=== PATIENT | male | born 1945 | race Caucasian/White ===

== ENCOUNTER 2024-02-16 12:30 | Outpatient (CLI) | payer MEDICARE | END 2024-02-16 12:31 | disposition home or self-care (01) | LOC: PET 12:30 | PROVIDERS: ATTEND Urology | DX: C61 Malignant neoplasm of prostate (principal); C77.5 Secondary and unspecified malignant neoplasm of intrapelvic lymph nodes | CPT/HCPCS: 78815; A9552; A9595 ==

== ENCOUNTER 2024-04-27 15:40 | Outpatient (CLI) | payer MEDICARE | END 2024-04-27 15:41 | disposition home or self-care (01) | LOC: BICULT 15:40 | PROVIDERS: ATTEND Internal Medicine | DX: C61 Malignant neoplasm of prostate (principal); N32.9 Bladder disorder, unspecified | CPT/HCPCS: 76770 ==

== ENCOUNTER 2024-10-05 09:27 | Outpatient (CLI) | payer MEDICARE | END 2024-10-05 09:28 | disposition home or self-care (01) | LOC: BICMRI 09:27 → MRI 09:28 | PROVIDERS: ATTEND Family Medicine | DX: G31.9 Degenerative disease of nervous system, unspecified (principal); G91.2 (Idiopathic) normal pressure hydrocephalus; G93.89 Other specified disorders of brain | CPT/HCPCS: 70551 ==

== ENCOUNTER 2024-10-28 10:38 | Outpatient (CLI) | payer MEDICARE | END 2024-10-28 10:39 | disposition home or self-care (01) | LOC: LABBT 10:38 | PROVIDERS: ATTEND Student in an Organized Health Care Education/Training Program | DX: Z01.818 Encounter for other preprocedural examination (principal) | CPT/HCPCS: 71046 ==